=== PATIENT | female | born 1950 | race Caucasian/White ===

== ENCOUNTER 2017-01-16 12:16 | Emergency (ER) | payer MEDICARE, MEDICAID ==
[2017-01-16] MEDS ORDERED: NS 0.9% 1000 ML* 1,000 ML IV SCH (12:45)
--- NOTE | 2017-01-16 14:17 | RAD ---
Indication: Altered mental status. Fell and hit head. Comparison: September 15, 2016 Technique: Upright AP 1351 hours Report: Unchanged minimal linear atelectasis or pleural-parenchymal scarring at the LEFT lung base. The lungs and pleural spaces are otherwise clear. Negative for pneumothorax. The heart, pulmonary vasculature, and mediastinal contours are unremarkable. No rib fracture or suspicious osseous finding. IMPRESSION: No evidence for acute intrathoracic disease.
[2017-01-16] MEDS ORDERED: LORazepam TAB(*) 1 MG PO ONE (14:55)
[2017-01-16] MEDS ORDERED: LORazepam TAB(*) 1 MG ONE (14:57)
--- NOTE | 2017-01-16 15:30 | RAD ---
INDICATION: Intracranial injury COMPARISON: CT brain December 16, 2015 TECHNIQUE: Noncontrast axial source images were acquired from the skull base to the vertex. FINDINGS: Ventricles/sulci: There is cortical atrophy with compensatory dilatation of the CSF spaces. Brain parenchyma: There is periventricular and subcortical white matter change compatible with chronic ischemia. Intracranial hemorrhage:None. Extra-axial spaces: There are no abnormal extra axial fluid collections or evidence of extra-axial mass. Calvarium: There is no calvarial fracture or other calvarial abnormality. Scalp: There is no evidence of scalp or extracalvarial soft tissue abnormality. Paranasal sinuses/mastoid: The paranasal sinuses and mastoid air cells are clear. Other: None. IMPRESSION: CORTICAL ATROPHY WITH CHRONIC MICROVASCULAR ISCHEMIC CHANGES. NO ACUTE FINDINGS.
--- NOTE | 2017-01-16 15:31 | RAD ---
HISTORY: Trauma, head trauma COMPARISONS: August 16, 2016 TECHNIQUE: Multiple contiguous axial CT scans were obtained of the cervical spine without intravenous contrast, with coronal and sagittal multiplanar reformations. FINDINGS: BRAIN: The visualized brain is unremarkable CENTRAL CANAL: Evaluation of the central canal is limited on CT technique; however, there is no obvious canalicular mass or epidural hemorrhage. ALIGNMENT: There is straightening of the cervical lordosis. VERTEBRAL BODIES: There is mild anterolateral marginal osteophyte formation. There is no displaced fracture. JOINTS: There is osteoarthritis of the uncovertebral and facet joints. There is no subluxation or dislocation MUSCULATURE: Unremarkable INTERVERTEBRAL DISCS: There is diffuse loss of intervertebral disc height. AXIAL IMAGES: There is multilevel neural foraminal narrowing. There is no significant osseous central canal stenosis SOFT TISSUES: The visualized soft tissues of the neck are unremarkable. The prevertebral fat stripe is preserved. OTHER: None. IMPRESSION: DEGENERATIVE DISC DISEASE AND OSTEOARTHRITIS. NO ACUTE OSSEOUS INJURY TO THE CERVICAL SPINE
[2017-01-16 15:48] LABS: Urine Bacteria Absent (Absent); Urine Bilirubin Negative (Negative); Urine Glucose Negative (Negative); Urine Nitrite Negative (Negative)
[2017-01-16 15:59] LABS: BUN/Creatinine Ratio 26.1 (8-20); C Reactive Protein 58.45 mg/L (< 5.00); Calcium 9.3 mg/dL (8.6-10.3); EGFR African American 108.8 (>60); EGFR Non-African American 84.6 (>60); Globulin 3.3 g/dL (2-4); Magnesium 2.3 mg/dL (1.9-2.7); Potassium 3.6 mmol/L (3.5-5.0); Total Bilirubin 0.5 mg/dL (0.2-1.0); Total Protein 7.3 g/dL (6.4-8.9)
[2017-01-16 16:39] LABS: TSH (Thyroid Stimulating Horm) 2.08 mcIU/mL (0.34-5.60)
[2017-01-16 18:44] VITALS: BP 117/71
--- NOTE | 2017-01-16 18:50 | ED ---
Olga Wilson Matthew, scribed for Dung Ferrari MD on 01/16/17 at 1505 . Adult Trauma - HPI Summary HPI Summary: A 66 y/o female presents to the ED by EMS after sustaining a mechanical fall two days ago. The patient states that she does not remember how she fell. Associated symptoms include vomiting last night and ecchymosis to the left frontal mackenzie. The patient denies pain, LOC, chest pain, SOB, diarrhea, and weakness. The patient is not on a blood thinner. The patient is in assisted living and the report states that she's also been more lethargic than normal. - History of Current Complaint Chief Complaint: EDGeneral Stated Complaint: FALL Time Seen by Provider: 01/16/17 14:41 Hx Obtained From: Patient ?: No Mechanism of Injury: Fall Ambulatory at the Scene: No Loss of Consciousness: no loss of consciousness Current Severity: Mild Pain Intensity: 0 Pain Scale Used: 0-10 Numeric Location: Head Aggravating Factor(s): Nothing Alleviating Factor(s): Nothing Associated Signs & Symptoms: Positive: Nausea/Vomiting, Ecchymosis - Left frontal forehead. Negative: SOB, Chest Pain, Loss of Consciousness, Numbness/ Weakness - Additional Pertinent History Primary Care Physician: [id number] - Allergy/Home Medications Allergies/Adverse Reactions: Allergies Allergy/AdvReac Type Severity Reaction Status Date / Time No Known Allergies Allergy Verified 07/23/16 06:49 Home Medications: Home Medications Acetaminophen SUPP* [Tylenol Supp*] 650 mg AK Q6H PRN 01/16/17 [History Confirmed 01/16/17] Benztropine TAB* [Cogentin TAB*] 2 mg PO BEDTIME 01/16/17 [History Confirmed ] Cholecalciferol [Vitamin D3] 50,000 unit PO MONTHLY 01/16/17 [History Confirmed 01/16/17] Divalproex Sprinkle CAP* [Depakote Sprinkle CAP*] 500 mg PO BID 01/16/17 [ History Confirmed 01/16/17] Haloperidol TAB* [Haldol TAB*] 7.5 mg PO BID PRN 01/16/17 [History Confirmed ] Potassium Chlor TAB* [Klor Con ER TAB*] 10 meq PO TID 01/16/17 [History Confirmed 01/16/17] Sennosides-Docusate Sodium [Senna-S 8.6-50 mg] 2 tab PO BEDTIME PRN 01/16/17 [ History Confirmed 01/16/17] risperiDONE CONSTA* [RisperDAL Consta*] 50 mg IM Q14D 01/16/17 [History Confirmed 01/16/17] PMH/Surg Hx/FS Hx/Imm Hx Musculoskeletal History: Reports: Hx Arthritis - osteoarthritis, Other Musculoskeletal History - tremors Neurological History: Reports: Hx Dementia - Alzheimer's Psychiatric History: Reports: Hx Anxiety, Hx Depression, Hx Schizophrenia, Hx Bipolar Disorder, Hx of Violent Episodes Against Others Denies: Hx Eating Disorder Infectious Disease History: No Infectious Disease History: Denies: Traveled Outside the [place] in Last 30 Days - Family History Known Family History: Positive: Diabetes - Social History Alcohol Use: None Substance Use Type: Reports: None Smoking Status (MU): Never Smoked Tobacco Review of Systems Constitutional: Negative Eyes: Negative ENT: Negative Cardiovascular: Negative Negative: Chest Pain Respiratory: Negative Negative: Shortness Of Breath Positive: Vomiting - last night . Negative: Diarrhea Genitourinary: Negative Musculoskeletal: Negative Positive: Bruising - left frontal forehead Neurological: Negative Positive: Anxious All Other Systems Reviewed And Are Negative: Yes Physical Exam - Summary Physical Exam Summary: The patient is well-nourished in no acute distress and in no acute pain. The skin is warm and dry and skin color reflects adequate perfusion. HEENT: The head is normocephalic and atraumatic. The pupils are equal and reactive. The conjunctivae are clear and without drainage. Nares are patent and without drainage. Mouth reveals moist mucous membranes and the throat is without erythema and exudate. The external ears are intact. The ear canals are patent and without drainage. The tympanic membranes are intact. The patient has no hemotympanum, no wells sign, and no raccoon sign. She has a hematoma of the left frontal forehead. No injuries noted to her facial bones Neck is supple with full range of motion and non-tender. There are no carotid bruits. There is no neck vein distension. Respiratory: Chest is non-tender. Lungs are clear to auscultation and breath sounds are symmetrical and equal. Cardiovascular: Heart is regular rate and rhythm. There is no murmur or rub auscultated. There is no peripheral edema and pulses are symmetrical and equal. Abdomen: The abdomen is soft and non-tender. There are normal bowel sounds heard in all four quadrants and there is no organomegaly palpated. Musculoskeletal: There is no back pain noted. Extremities are non-tender with full range of motion. There is good capillary refill. There is no peripheral edema or calf tenderness elicited. Neurological: Patient is alert and oriented to person, place and time. The patient has symmetrical motor strength in all four extremities. Cranial nerves are grossly intact. Deep tendon reflexes are symmetrical and equal in all four extremities. Psychiatric: The patient is anxious. Triage Information Reviewed: Yes Vital Signs On Initial Exam: Initial Vitals Temp Pulse Resp BP Pulse Ox 99.0 F 92 18 111/52 94 01/16/17 12:20 01/16/17 12:20 01/16/17 12:20 01/16/17 12:20 01/16/17 12:20 Vital Signs Reviewed: Yes - Riri Coma Scale Coma Scale Total: 15 Diagnostics - Vital Signs Vital Signs Temp Pulse Resp BP Pulse Ox 01/16/17 14:34 94 20 103/65 94 01/16/17 14:30 93 22 82/41 94 01/16/17 14:15 26 01/16/17 14:00 87 17 106/36 95 01/16/17 13:45 87 15 97 01/16/17 13:30 83 16 101/52 96 01/16/17 13:15 88 17 97 01/16/17 13:00 88 15 105/45 95 01/16/17 12:45 88 14 94 01/16/17 12:42 87 13 96/50 96 01/16/17 12:40 16 96/41 01/16/17 12:37 99 F 91 18 96/50 97 01/16/17 12:29 99 F 90 18 101/56 96 01/16/17 12:28 99 F 89 18 111/52 96 01/16/17 12:20 99.0 F 92 18 111/52 94 - Laboratory Lab Results: Lab Results 01/16/17 01/16/17 01/16/17 Range/Units 15:29 15:29 15:29 INR (Anticoag Therapy) 0.95 (0.89-1.11) APTT 25.2 L (26.0-36.3) seconds Sodium 138 (133-145) mmol/L Potassium 3.6 (3.5-5.0) mmol/L Chloride 105 (101-111) mmol/L Carbon Dioxide 27 (22-32) mmol/L Anion Gap 6 (2-11) mmol/L BUN 18 (6-24) mg/dL Creatinine 0.69 (0.51-0.95) mg/dL Est GFR ( Amer) 108.8 (>60) Est GFR (Non-Af Amer) 84.6 (>60) BUN/Creatinine Ratio 26.1 H (8-20) Glucose 91 (70-100) mg/dL Lactic Acid (0.5-2.0) mmol/L Calcium 9.3 (8.6-10.3) mg/dL Magnesium 2.3 (1.9-2.7) mg/dL Total Bilirubin 0.50 (0.2-1.0) mg/dL AST 19 (13-39) U/L ALT 12 (7-52) U/L Alkaline Phosphatase 45 (34-104) U/L Total Creatine Kinase 82 (10-223) U/L CK-MB (CK-2) 4.4 (0.6-6.3) ng/mL Troponin I 0.00 (<0.04) ng/mL C-Reactive Protein 58.45 H (< 5.00) mg/L B-Natriuretic Peptide ( - 100) pg/mL Total Protein 7.3 (6.4-8.9) g/dL Albumin 4.0 (3.2-5.2) g/dL Globulin 3.3 (2-4) g/dL Albumin/Globulin Ratio 1.2 (1-3) Lipase 11 (11.0-82.0) U/L TSH 2.08 (0.34-5.60) mcIU/mL Urine Color Yellow Urine Appearance Clear Urine pH 7.0 (5-9) Ur Specific [place] 1.010 (1.010-1.030) Urine Protein Negative (Negative) Urine Ketones Trace H (Negative) Urine Blood Negative (Negative) Urine Nitrate Negative (Negative) Urine Bilirubin Negative (Negative) Urine Urobilinogen Negative (Negative) Ur Leukocyte Esterase 3+ H (Negative) Urine WBC (Auto) 3+(>20/hpf) H (Absent) Urine RBC (Auto) Absent (Absent) Ur Squamous Epith Cells Present H (Absent) Urine Bacteria Absent (Absent) Urine Glucose Negative (Negative) Valproic Acid 111.0 H (50-100) mcg/mL 01/16/17 01/16/17 Range/Units 15:29 15:29 INR (Anticoag Therapy) (0.89-1.11) APTT (26.0-36.3) seconds Sodium (133-145) mmol/L Potassium (3.5-5.0) mmol/L Chloride (101-111) mmol/L Carbon Dioxide (22-32) mmol/L Anion Gap (2-11) mmol/L BUN (6-24) mg/dL Creatinine (0.51-0.95) mg/dL Est GFR ( Amer) (>60) Est GFR (Non-Af Amer) (>60) BUN/Creatinine Ratio (8-20) Glucose (70-100) mg/dL Lactic Acid 0.6 (0.5-2.0) mmol/L Calcium (8.6-10.3) mg/dL Magnesium (1.9-2.7) mg/dL Total Bilirubin (0.2-1.0) mg/dL AST (13-39) U/L ALT (7-52) U/L Alkaline Phosphatase (34-104) U/L Total Creatine Kinase (10-223) U/L CK-MB (CK-2) (0.6-6.3) ng/mL Troponin I (<0.04) ng/mL C-Reactive Protein (< 5.00) mg/L B-Natriuretic Peptide 72 ( - 100) pg/mL Total Protein (6.4-8.9) g/dL Albumin (3.2-5.2) g/dL Globulin (2-4) g/dL Albumin/Globulin Ratio (1-3) Lipase (11.0-82.0) U/L TSH (0.34-5.60) mcIU/mL Urine Color Urine Appearance Urine pH (5-9) Ur Specific [place] (1.010-1.030) Urine Protein (Negative) Urine Ketones (Negative) Urine Blood (Negative) Urine Nitrate (Negative) Urine Bilirubin (Negative) Urine Urobilinogen (Negative) Ur Leukocyte Esterase (Negative) Urine WBC (Auto) (Absent) Urine RBC (Auto) (Absent) Ur Squamous Epith Cells (Absent) Urine Bacteria (Absent) Urine Glucose (Negative) Valproic Acid (50-100) mcg/mL Result Diagrams: 01/16/17 15:29 Lab Statement: Any lab studies that have been ordered have been reviewed, and results considered in the medical decision making process. - Radiology CXR Xray Interpretation: No Acute Changes - IMPRESSION: No evidence for acute intrathoracic disease. Radiology Interpretation Completed By: Radiologist - CT Brain CT CT Interpretation: No Acute Changes - IMPRESSION: CORTICAL ATROPHY WITH CHRONIC MICROVASCULAR ISCHEMIC CHANGES. NO ACUTE FINDINGS. CT Interpretation Completed By: Radiologist Cervical Spine CT Interpretation: No Acute Changes - IMPRESSION: DEGENERATIVE DISC DISEASE AND OSTEOARTHRITIS. NO ACUTE OSSEOUS INJURY TO THE CERVICAL SPINE CT Interpretation Completed By: Radiologist Adult Trauma Course/Dx - Course Assessment/Plan: A 66 y/o female presents to the ED by EMS after sustaining a mechanical fall two days ago. Associated symptoms include vomiting last night. The patient denies pain, LOC, chest pain, SOB, diarrhea, and weakness. CXR shows no active cardiopulmonary disease. Brain CT shows no acute findings. C- Spine CT shows no acute osseous injury. Labs were reviewed. In the ED course, the patient was given Ativan and IV fluids. The patient will be discharged home and follow-up with her PCP. - Diagnoses Provider Diagnoses: Head contusion, Altered mental status, Anxiety Discharge - Discharge Plan Condition: Stable Disposition: HOME Patient Education Materials: Facial Contusion (ED), Altered Mental Status (ED) , Anxiety (ED) Referrals: Andrés Sol MD [Primary Care Provider] - 2 Days Additional Instructions: Please follow-up with your primary care physician in 2 days. The documentation as recorded by the Olga goode Matthew accurately reflects the service I personally performed and the decisions made by , Dung Ferrari MD.
== END 2017-01-16 18:41 | disposition home or self-care (01) ==
LOC: ED 12:16
DX: R11.2 Nausea with vomiting, unspecified (principal); R58 Hemorrhage, not elsewhere classified; S00.83XA Contusion of other part of head, initial encounter; W19.XXXA Unspecified fall, initial encounter; Y93.9 Activity, unspecified; Y92.9 Unspecified place or not applicable
CPT/HCPCS: 36415; 70450; 71010; 72125; 80053; 80164; 81003; 81015; 82550; 82553; 83605; 83690; 83735; 83880; 84443; 84484; 85610; 85730; 86140; 87086; 99284; A9270-GY

== ENCOUNTER 2017-08-12 12:05 | Emergency (ER) | payer MEDICARE, OTHER ==
[2017-08-12 12:52] LABS: Hematocrit 38 % (35-47); Hemoglobin 12.8 g/dl (12.0-16.0); Mean Corpuscular HGB Conc 33 g/dl (31-36); Mean Corpuscular Hemoglobin 30 pg (27-31); Mean Corpuscular Volume 90 fL (80-97); Mean Platelet Volume 7 um3 (7.4-10.4); Red Blood Count 4.24 10^6/ul (4.0-5.4); Red Cell Distribution Width 15 % (10.5-15); White Blood Count 6.4 10^3/ul (3.5-10.8)
[2017-08-12 13:09] LABS: Albumin 3.9 g/dL (3.2-5.2); Calcium 9.2 mg/dL (8.6-10.3); EGFR African American 108.8 (>60); EGFR Non-African American 84.6 (>60); Globulin 3.7 g/dL (2-4); Potassium 3.9 mmol/L (3.5-5.0); Total Bilirubin 0.4 mg/dL (0.2-1.0); Total Protein 7.6 g/dL (6.4-8.9)
[2017-08-12 17:26] LABS: Urine Bacteria 1+ (Absent)
[2017-08-12 17:28] LABS: Urine Bilirubin Negative (Negative); Urine Glucose Negative (Negative); Urine Nitrite Positive (Negative)
[2017-08-12] MEDS ORDERED: NS 0.9% 1000 ML* 1,000 ML IV ONE (18:49)
[2017-08-12] MEDS ORDERED: cefTRIAXone(*) 1 GM in NS 0.9% 50 ML* 50 ML IVPB ONE (18:49)
[2017-08-12 19:45] LABS: C Reactive Protein 7.37 mg/L (< 5.00)
[2017-08-12 23:03] VITALS: BP 115/80
--- NOTE | 2017-08-13 15:23 | ED ---
Fara Wilson Alfonso scribed for Yuriy Soliz MD on 08/12/17 at 1342 . Altered Mental Status - HPI Summary HPI Summary: This patient is a 66 year old F BIBA presenting to [facility] with a chief complaint of AMS since a few days ago. The patient rates the pain 0/10 in severity. Symptoms alleviated by nothing. Patient reports she wants to return to [facility] because she doesnt care anymore. She reports loss of appetite. Per [facility], patient has had a change in baseline strength, increased sleeping , decreased motivation though she was previously ambulatory; all of which the patient denies. Patient also denies SI. - History Of Current Complaint Chief Complaint: EDAltMentalStatus Stated Complaint: WEAKNESS Hx Obtained From: Patient, Medical Records - [facility] Hx From Patient Unobtainable Due To: Altered Mental Status Onset/Duration: Still Present Timing: Constant, Lasting Days Severity Initially: Moderate Severity Currently: Moderate Alleviating Factor(s): Nothing Associated Signs And Symptoms: Positive: Weakness, Recently Depressed - Allergies/Home Medications Allergies/Adverse Reactions: Allergies Allergy/AdvReac Type Severity Reaction Status Date / Time No Known Allergies Allergy Verified 07/23/16 06:49 PMH/Surg Hx/FS Hx/Imm Hx Musculoskeletal History: Reports: Hx Arthritis - osteoarthritis, Other Musculoskeletal History - tremors Neurological History: Reports: Hx Dementia - Alzheimer's Psychiatric History: Reports: Hx Anxiety, Hx Depression, Hx Schizophrenia, Hx Bipolar Disorder, Hx of Violent Episodes Against Others Denies: Hx Eating Disorder Infectious Disease History: Unable to Obtain/Confirm Infectious Disease History: Denies: Traveled Outside the [place] in Last 30 Days - Family History Known Family History: Positive: Unknown - unattainable due to dementia, level 5 caveat, Diabetes - Social History Alcohol Use: None Substance Use Type: Reports: None Smoking Status (MU): Never Smoked Tobacco Review of Systems Negative: Fever, Chills Negative: Erythema Negative: Sore Throat Negative: Chest Pain Negative: Shortness Of Breath, Cough Gastrointestinal: Other - loss of appetite Negative: Abdominal Pain, Vomiting, Nausea Negative: dysuria, hematuria Positive: Myalgia. Negative: Edema Negative: Rash Neurological: Other - positive: change in baseline strength, increased sleeping , decreased motivation though she was previously ambulatory; Negative: Dizziness Positive: Other - altered mental status; negative SI All Other Systems Reviewed And Are Negative: Yes Physical Exam Triage Information Reviewed: Yes Vital Signs On Initial Exam: Initial Vitals Temp Pulse Resp BP Pulse Ox 97.8 F 76 18 126/50 96 08/12/17 12:07 08/12/17 12:07 08/12/17 12:07 08/12/17 12:07 08/12/17 12:07 Vital Signs Reviewed: Yes Appearance: Positive: Well-Appearing, No Pain Distress, Well-Nourished Skin: Positive: Warm, Dry, Other - withdraws from touch from stethoscope; dry mucous membranes Head/Face: Positive: Normal Head/Face Inspection Eyes: Positive: Conjunctiva Clear Neck: Positive: Other: - Musculoskeletal ROM normal neck. (-) JVD, (-) Stridor, (-) Tracheal deviation, (-) Cervical adenopathy Respiratory/Lung Sounds: Positive: Other - Effort normal. (-) Respiratory distress, (-) Wheezes, (-) Rales Cardiovascular: Positive: RRR, Other - Heart sounds normal; Intact distal pulses ; The pedal pulses are 2+ and symmetric. Radial pulses are 2+ and symmetric. (- ) Murmur Abdomen Description: Positive: Nontender, Soft, Other: - Negative rebound. Negative: Distended, Guarding Musculoskeletal: Positive: Other - Withdrawals from light touch.. Negative: Edema Left, Edema Right Neurological: Positive: Alert, Oriented to Person Place, Time Psychiatric: Positive: Other - tearful - Riri Coma Scale Coma Scale Total: 15 Diagnostics - Vital Signs Vital Signs Temp Pulse Resp BP Pulse Ox 08/12/17 12:07 97.8 F 76 18 126/50 96 - Laboratory Lab Results: Lab Results 08/12/17 Range/Units 12:40 WBC 6.4 (3.5-10.8) 10^3/ul RBC 4.24 (4.0-5.4) 10^6/ul Hgb 12.8 (12.0-16.0) g/dl Hct 38 (35-47) % MCV 90 (80-97) fL MCH 30 (27-31) pg MCHC 33 (31-36) g/dl RDW 15 (10.5-15) % Plt Count 257 (150-450) 10^3/ul MPV 7 L (7.4-10.4) um3 Neut % (Auto) 52.1 (38-83) % Lymph % (Auto) 32.5 (25-47) % [place] % (Auto) 12.0 H (1-9) % Eos % (Auto) 2.7 (0-6) % Baso % (Auto) 0.7 (0-2) % Absolute Neuts (auto) 3.3 (1.5-7.7) 10^3/ul Absolute Lymphs (auto) 2.1 (1.0-4.8) 10^3/ul Absolute Monos (auto) 0.8 (0-0.8) 10^3/ul Absolute Eos (auto) 0.2 (0-0.6) 10^3/ul Absolute Basos (auto) 0 (0-0.2) 10^3/ul Absolute Nucleated RBC 0 10^3/ul Nucleated RBC % 0 Result Diagrams: 08/12/17 12:40 08/12/17 12:40 Lab Statement: Any lab studies that have been ordered have been reviewed, and results considered in the medical decision making process. - EKG 1242 Cardiac Rate: NL - BPM 77 EKG Rhythm: Sinus Rhythm EKG Interpretation: No STEMI Altered Mental Statu Course/Dx - Course Assessment/Plan: This patient is a 66 year old F BIBA presenting to [facility] with a chief complaint of AMS since a few days ago. The patient rates the pain 0/10 in severity. Symptoms alleviated by nothing. Patient reports she wants to return to [facility] because she doesnt care anymore. She reports loss of appetite. Per [facility], patient has had a change in baseline strength, increased sleeping, decreased motivation though she was previously ambulatory; all of which the patient denies. Patient also denies SI. An EKG reveals NSR. Patient is signed out at shift change, pending disposition, awaiting MHE. - Diagnoses Discharge Diagnoses: Schizophrenia, UTI (urinary tract infection) Discharge - Discharge Plan Condition: Stable Disposition: OTHER Discharge Disposition Comment: Patient is signed out at shift change, pending disposition, awaiting MHE. Patient Education Materials: Schizophrenia (ED), Urinary Tract Infection in Women (ED) Referrals: Andrés Sol MD [Primary Care Provider] - The documentation as recorded by the Fara goode Alfonso accurately reflects the service I personally performed and the decisions made by me, Yuriy Soliz MD.
--- NOTE | 2017-08-14 19:47 | PN ---
Progress Note - Progress Note Date of Service: 08/14/17 Note: Patient urine grew Citrobacter >100,000. patient placed on cipro which final culture shows is sensitive to. no further action needed.
== END 2017-08-13 02:13 ==
LOC: ED 12:05
DX: N39.0 Urinary tract infection, site not specified (principal); F20.9 Schizophrenia, unspecified; B96.89 Other specified bacterial agents as the cause of diseases classified elsewhere
CPT/HCPCS: 36415; 80053; 81003; 81015; 83605; 84484; 85025; 86140; 87077; 87086; 87186; 93005; 96360; 96374; 99285; J0696

== ENCOUNTER 2018-12-24 09:42 | Emergency (ER) | payer MEDICARE, MEDICAID ==
[2018-12-24] MEDS ORDERED: LORazepam TAB(*) 1 MG PO ONE (10:06)
[2018-12-24] MEDS ORDERED: LORazepam INJ* 2 MG/ML 1 ML VIAL IM ONE (10:12)
[2018-12-24] MEDS ORDERED: Lidocaine 1%* 5 ML VIAL INJ ONE (10:18)
--- NOTE | 2018-12-24 11:01 | ED ---
Skin Complaint - HPI Summary HPI Summary: Patient is a 68-year-old female who presents emergency department for abscess to her chest. Patient resides at [facility] and has an extensive psychiatric history. [facility] that patient has had a wound to the center of her chest for about 4 weeks. She was on a course of doxycycline which was recently switched to Bactrim. Patient had an ultrasound of area done yesterday which showed a small fluid collection. No associate symptoms of fevers, vomiting, change in mental status. Symptoms are mild in severity. Touching affected area makes symptoms worse. Rest makes symptoms better. [facility] obtained [facility]. - History of Current Complaint Chief Complaint: EDRashSkinAbscess Time Seen by Provider: 12/24/18 09:54 Stated Complaint: ABSCESS ON CHEST Hx Obtained From: Family/Director Special Education Pain Intensity: 6 - Additional Pertinent History Primary Care Physician: MARILYN - Allergy/Home Medications Allergies/Adverse Reactions: Allergies Allergy/AdvReac Type Severity Reaction Status Date / Time No Known Allergies Allergy Verified 12/24/18 09:53 Home Medications: Home Medications Cholecalciferol (Vitamin D3) [Vitamin D3] 50,000 unit PO MONTHLY 12/24/18 [ History Confirmed 12/24/18] Sulfamethox/Trimethoprim DS* [Bactrim DS 800/160 TAB*] 1 tab PO BID 12/24/18 [ History Confirmed 12/24/18] guaiFENesin LIQ* [Robitussin*] 5 ml PO Q4H PRN 12/24/18 [History Confirmed 12/24] PMH/Surg Hx/FS Hx/Imm Hx Previously Healthy: Yes Musculoskeletal History: Reports: Hx Arthritis - osteoarthritis, Other Musculoskeletal History - tremors Neurological History: Reports: Hx Dementia - Alzheimer's Psychiatric History: Reports: Hx Anxiety, Hx Depression, Hx Schizophrenia, Hx Bipolar Disorder, Hx of Violent Episodes Against Others Denies: Hx Eating Disorder Infectious Disease History: Unable to Obtain/Confirm Infectious Disease History: Denies: Traveled Outside the [place] in Last 30 Days - Family History Known Family History: Positive: Unknown - unattainable due to dementia, level 5 caveat, Diabetes, Non-Contributory - Social History Occupation: Retired Lives: At [facility] Alcohol Use: None Substance Use Type: Reports: None Smoking Status (MU): Never Smoked Tobacco Review of Systems Constitutional: Negative Negative: Fever, Chills Gastrointestinal: Negative Positive: Other - Abscess to anterior chest All Other Systems Reviewed And Are Negative: Yes Physical Exam Triage Information Reviewed: Yes Vital Signs On Initial Exam: Initial Vitals Pulse Pulse Ox 85 93 12/24/18 09:48 12/24/18 09:48 Vital Signs Reviewed: Yes Appearance: Positive: Well-Nourished - Pt. lying in bed, extremely anxious. No very cooperative with exam. Skin: Positive: Warm, Dry, Other - Noted the center of the upper chest there is a roughly 2cm in diameter wound with scabbing. Mild fluctuance in the subcutaneous region. Wound edges are erythematous but no surrouding cellulitis. Head/Face: Positive: Normal Head/Face Inspection Eyes: Positive: Normal, EOMI Neck: Positive: Supple Musculoskeletal: Positive: Normal, Strength/ROM Intact Neurological: Positive: Normal, CN Intact II-III Psychiatric: Positive: Anxious Procedures - Incision and Drainage Anterior Chest Anesthesia: Local, Lidocaine Instrument(s): Scalpel Packing: Gauze Diagnostics - Vital Signs Vital Signs Temp Pulse Resp BP Pulse Ox 12/24/18 10:28 20 12/24/18 10:08 84 94 12/24/18 09:53 98.8 F 92 24 113/63 92 12/24/18 09:48 85 93 - Laboratory Lab Statement: Any lab studies that have been ordered have been reviewed, and results considered in the medical decision making process. Course/Dx - Course Assessment/Plan: Pt. presenting for small superficial abscess to chest wall. She is afebrile and at her baseline. There is no surrounding cellulits on exam. Pt. examined by Dr. Mccarthy as well. Plan for IM ativan to help with pt.'s anxiety and perform I and D. During initial assessment nurse was able to express a moderate amount of purulent matter from wound. Culture obtained. I and D did not yeild much drainage but packing placed. Will continue bactrim. Apply warm compresses. Wound check with PCP in 2-3 days. Packing removal in 48 hours. To return to ER for fever, increased pain, redness, swelling, or if concerned. - Differential Diagnoses - Skin Complaint Differential Diagnoses: Abscess, Cellulitis - Diagnoses Provider Diagnoses: Abscess Discharge - Sign-Out/Discharge Documenting (check all that apply): Patient Departure Patient Received Moderate/Deep Sedation with Procedure: No - Discharge Plan Condition: Improved Disposition: HOME Patient Education Materials: Abscess (ED) Referrals: Andrés Sol MD [Primary Care Provider] - Additional Instructions: Wound check with PCP in 2-3 days Packing removal/change in 48 hours Keep wound clean and dry Apply warm compresses Continue Bactrim as directed Return to ER for increased pain, redness, swelling, fever, or if concerned - Billing Disposition and Condition Condition: IMPROVED Disposition: Home
[2018-12-24 13:30] VITALS: BP 107/54
--- NOTE | 2018-12-24 17:23 | CONSULT ---
Consult Consult: Patient seen with Piter Montalvo. This patient is a 68 year old female who was sent here by her living facility for treatment of an unhealing lesion on her chest wall. An U/S was done today showing drainable fluid in the lesion. On exam, the patient is in no acute distress. She has a 2cm lesion on the anterior chest wall just over the superior sternum. It is fluctuant and has overlying crusting and purulent drainage. Assessment: anterior chest wall abscess. Plan: I agree with I+D performed by Piter Montalvo and discharge back to facility. It is recommended that she continue the Bactrim she is currently taking.
== END 2018-12-24 12:26 | disposition home or self-care (01) ==
LOC: ED 09:42
DX: L02.213 Cutaneous abscess of chest wall (principal)
CPT/HCPCS: 10060; 87070; 87205; 87640; 87641; 96372; 99284; J2060

== ENCOUNTER 2019-08-01 17:59 | Emergency (ER) | payer MEDICARE, MEDICAID ==
--- NOTE | 2019-08-01 19:23 | ED ---
Adult Trauma - HPI Summary HPI Summary: Patient is a 68 y/o F presenting to ED via EMS from [facility] for an unwitnessed fall. Staff called EMS. Patient denies pain or injury from fall, but states that she feels upset about the fall. No further information is able to be obtained from the patient, patient is a level 5 caveat due to dementia. PMHx of dementia, arthritis, anxiety, depression, bipolar disorder, schizophrenia. Home medications and allergies are reviewed. - History of Current Complaint Chief Complaint: EDFall Stated Complaint: FALL, EVALUATION PER EMS Time Seen by Provider: 08/01/19 19:13 Hx Obtained From: Patient, EMS, Medical Records Hx From Patient Unobtainable Due To: Dementia - limited history, patient is a level 5 caveat due to dementia Mechanism of Injury: Fall Loss of Consciousness: unsure - unwitnessed fall Restraints: None Current Severity: None Pain Intensity: 0 Pain Scale Used: 0-10 Numeric - Additional Pertinent History Primary Care Physician: MARILYN - Allergy/Home Medications Allergies/Adverse Reactions: Allergies Allergy/AdvReac Type Severity Reaction Status Date / Time No Known Allergies Allergy Verified 12/24/18 09:53 PMH/Surg Hx/FS Hx/Imm Hx Musculoskeletal History: Reports: Hx Arthritis - osteoarthritis, Other Musculoskeletal History - tremors Neurological History: Reports: Hx Dementia - Alzheimer's Psychiatric History: Reports: Hx Anxiety, Hx Depression, Hx Schizophrenia, Hx Bipolar Disorder, Hx of Violent Episodes Against Others Denies: Hx Eating Disorder Infectious Disease History: Unable to Obtain/Confirm Infectious Disease History: Denies: Traveled Outside the [place] in Last 30 Days - Family History Known Family History: Positive: Diabetes - Social History Alcohol Use: None Substance Use Type: Reports: None Smoking Status (MU): Never Smoked Tobacco Review of Systems - ROS Summary Review of Systems Summary: limited history, patient is a level 5 caveat due to dementia Negative: Fever - on vitals, temp is 98.7 F Musculoskeletal: Other - positive - fall; negative - pain or injury All Other Systems Reviewed And Are Negative: No - Comments Additional Review of Systems Comments: limited history, patient is a level 5 caveat due to dementia Physical Exam - Summary Physical Exam Summary: Appearance: Well-appearing, Well-nourished, Elderly, Tremulous and Tearful Skin: Warm, dry, no obvious rash Eyes: sclera anicteric, no conjunctival pallor ENT: mucous membranes moist, pharynx appears normal Neck: Supple, nontender, FROM of neck Respiratory: Clear to auscultation, no signs of respiratory distress Cardiovascular: Normal S1, S2. No murmurs. Normal distal pulses in tibial and radial bilaterally. Abdomen: Soft, nontender, normal active bowel sounds present Musculoskeletal: Normal, Strength/ROM Intact; no tenderness to palpation over extremities. No signs of head trauma. Neurological: Level 5 caveat due to dementia. Triage Information Reviewed: Yes Vital Signs On Initial Exam: Initial Vitals Temp Pulse Resp BP Pulse Ox 98.7 F 93 20 100/60 96 08/01/19 18:18 08/01/19 18:18 08/01/19 18:18 08/01/19 18:18 08/01/19 18:18 Vital Signs Reviewed: Yes Completion Of Physical Exam Limited Due To: Dementia, Level 5 Diagnostics - Vital Signs Vital Signs Temp Pulse Resp BP Pulse Ox 08/01/19 18:18 98.7 F 93 20 100/60 96 - Laboratory Lab Statement: Any lab studies that have been ordered have been reviewed, and results considered in the medical decision making process. Adult Trauma Course/Dx - Course Course Of Treatment: Patient is a 68 y/o F presenting to ED via EMS from [facility] for an unwitnessed fall. Staff called EMS. Patient denies pain or injury from fall, but states that she feels upset about the fall. Patient is tremulous and tearful, but no tenderness over extremities is noted, patient has FROM of neck and no tenderness of her neck. No signs of head trauma noted. Patient is a level 5 caveat due to dementia. Patient was discharged from ED back to [facility]. - Diagnoses Provider Diagnoses: Fall Discharge ED - Sign-Out/Discharge Documenting (check all that apply): Patient Departure - discharge Patient Received Moderate/Deep Sedation with Procedure: No - Discharge Plan Condition: Stable Disposition: HOME Patient Education Materials: Fall Prevention for Older Adults (ED) Referrals: Melisa Wetzel DO [Primary Care Provider] - Additional Instructions: Mrs. Dominguez does not seem to have suffered any significant injury consequent to her fall, so we did not pursue any diagnostics. If she begins to complain of anything specific we can always see her back here. - Billing Disposition and Condition Condition: STABLE Disposition: Home - Attestation Statements Document Initiated by Raza: Yes Documenting Scribe: THALIA DIAS Provider For Whom Raza is Documenting (Include Credential): SEUN STEVENS MD Scribe Attestation: I, THALIA DIAS, scribed for SEUN STEVENS MD on 08/02/19 at 0621. Scribe Documentation Reviewed: Yes Provider Attestation: The documentation as recorded by the THALIA goode accurately reflects the service I personally performed and the decisions made by me, SEUN STEVENS MD Status of Scribe Document: Viewed
[2019-08-01 19:43] VITALS: BP 119/69
== END 2019-08-01 19:41 | disposition home or self-care (01) ==
LOC: ED 17:59
DX: G30.9 Alzheimer's disease, unspecified (principal); F02.80 Dementia in other diseases classified elsewhere, unspecified severity, without behavioral disturbance, psychotic disturbance, mood disturbance, and anxiety; R25.1 Tremor, unspecified; Z91.81 History of falling
CPT/HCPCS: 99283

== ENCOUNTER 2019-10-01 17:38 | Emergency (ER) | payer MEDICARE, OTHER ==
--- NOTE | 2019-10-01 18:09 | ED ---
Syncope/Near Syncope - HPI Summary HPI Summary: This patient is a 69 year old female presenting to [facility] with a chief complaint of syncope. The long term states she was eating dinner when she fainted. The patient states she just wants to go home. She denies chest pain and abdominal pain. - History Of Current Complaint Chief Complaint: EDSyncope Time Seen by Provider: 10/01/19 18:03 Hx Obtained From: Patient, Other: - senior living Onset/Duration: Sudden Onset Context: Witnessed, Loss Of Consciousness - Allergies/Home Medications Allergies/Adverse Reactions: Allergies Allergy/AdvReac Type Severity Reaction Status Date / Time No Known Allergies Allergy Verified 12/24/18 09:53 PMH/Surg Hx/FS Hx/Imm Hx Musculoskeletal History: Reports: Hx Arthritis - osteoarthritis, Other Musculoskeletal History - tremors Neurological History: Reports: Hx Dementia - Alzheimer's Psychiatric History: Reports: Hx Anxiety, Hx Depression, Hx Schizophrenia, Hx Bipolar Disorder, Hx of Violent Episodes Against Others Denies: Hx Eating Disorder Infectious Disease History: No Infectious Disease History: Denies: Traveled Outside the [place] in Last 30 Days - Family History Known Family History: Positive: Unknown - unattainable due to dementia, level 5 caveat, Diabetes, Non-Contributory - Social History Alcohol Use: None Substance Use Type: Reports: None Smoking Status (MU): Never Smoked Tobacco Review of Systems Negative: Chest Pain Negative: Abdominal Pain Positive: Syncope All Other Systems Reviewed And Are Negative: Yes Physical Exam - Summary Physical Exam Summary: Constitutional: Well-developed, Well-nourished, Alert. (-) Distressed Skin: Warm, Dry HENT: Normocephalic; Atraumatic Eyes: Conjunctiva normal Neck: Musculoskeletal ROM normal neck. (-) JVD, (-) Stridor, (-) Tracheal deviation Cardio: Rhythm regular, rate normal, Heart sounds normal; Intact distal pulses; Radial pulses are 2+ and symmetric. (-) Murmur Pulmonary/Chest wall: Effort normal. (-) Respiratory distress, (-) Wheezes, (-) Rales Abd: Soft, (-) tenderness, (-) Distension, (-) Guarding, (-) Rebound Musculoskeletal: (-) Edema Lymph: (-) Cervical adenopathy Neuro: Alert, Oriented x3. Slurred speech, able to understand. Psych: Mood and affect Normal Triage Information Reviewed: Yes Vital Signs On Initial Exam: Initial Vitals Temp Pulse Resp BP Pulse Ox 98.2 F 97 16 124/57 97 10/01/19 17:47 10/01/19 17:47 10/01/19 17:47 10/01/19 17:47 10/01/19 17:47 Vital Signs Reviewed: Yes Procedures - Sedation Patient Received Moderate/Deep Sedation with Procedure: No Diagnostics - Vital Signs Vital Signs Temp Pulse Resp BP Pulse Ox 10/01/19 17:47 98.2 F 97 16 124/57 97 - Laboratory Result Diagrams: 10/01/19 18:13 10/01/19 18:13 Lab Statement: Any lab studies that have been ordered have been reviewed, and results considered in the medical decision making process. - EKG 1813 Cardiac Rate: NL - 94 BPM EKG Rhythm: Sinus Rhythm Summary of EKG Findings: ST-depression V4-v6 unchanged from prior EKG. ED Physician has reviewed and interpreted this EKG. 1853 Cardiac Rate: Tachycardia - 101 BPM EKG Rhythm: Sinus Tachycardia Summary of EKG Findings: No STEMI. ED Physician has reviewed and interpreted this report. d Summary of EKG Findings: No STEMI. ED Physician has reviewed and interpreted this report. Course/Dx Course Of Treatment: Patient is here with a suspected syncopal Gaffney eating dinner. Patient was then taken to her room where she became angry. Upon arrival here, patient has no complaints outside of periodic dysuria. Patient is also demented and at her baseline per EMS. Patient had bloodwork performed which is grossly unremarkable. Patient had a negative EKG for any acute changes. Patient sent up to Dr. Rhodes pending UA result. - Diagnoses Provider Diagnoses: Near syncope Discharge ED - Sign-Out/Discharge Documenting (check all that apply): Sign-Out Patient Signing out patient TO: Betty Rhodes - At shift change 1900 - Discharge Plan Condition: Stable Disposition: HOME Referrals: Melisa Wetzel DO [Primary Care Provider] - Additional Instructions: Follow up with your primary care provider in 2-3 days. Return to the Emergency Department if you experience new or worsening symptoms. - Billing Disposition and Condition Condition: STABLE Disposition: Home - Attestation Statements Document Initiated by Scribe: Yes Documenting Scribe: Jerel Sherman Provider For Whom Scribe is Documenting (Include Credential): Aaron Oliveros MD Scribe Attestation: I, Jerel Sherman, scribed for Aaron Oliveros MD on 10/02/19 at 1128. Scribe Documentation Reviewed: Yes Provider Attestation: The documentation as recorded by the scribe, Jerel Sherman accurately reflects the service I personally performed and the decisions made by me, Aaron Oliveros MD Status of Scribe Document: Viewed
[2019-10-01 18:33] LABS: ABS Eosinophils 0.1 10^3/ul (0-0.6); ABS Lymphocytes 1.7 10^3/ul (1.0-4.8); ABS Neutrophils 5.4 10^3/ul (1.5-7.7); Eosinophil % 1.4 %; Hematocrit 37 % (35-47); Hemoglobin 12.4 g/dL (12.0-16.0); Lymphocyte % 20.1 %; Mean Corpuscular HGB Conc 34 g/dL (31-36); Mean Corpuscular Hemoglobin 30 pg (27-31); Mean Corpuscular Volume 90 fL (80-97); Mean Platelet Volume 7.8 fL (7.4-10.4); Platelet Count 242 10^3/uL (150-450); Red Blood Count 4.07 10^6 /uL (3.70-4.87); Red Cell Distribution Width 14 % (10-15); White Blood Count 8.2 10^3/uL (3.5-10.8)
[2019-10-01 18:56] LABS: Albumin/Globulin Ratio 1.2 (1-3); BUN/Creatinine Ratio 33.8 (8-20); Calcium 9.4 mg/dL (8.6-10.3); EGFR African American 93.6 (>60); EGFR Non-African American 77.4 (>60); Globulin 3.3 g/dL (2-4); Potassium 3.7 mmol/L (3.5-5.0); Total Bilirubin 0.2 mg/dL (0.2-1.0); Total Protein 7.3 g/dL (6.4-8.9)
[2019-10-01 19:02] LABS: Urine Appearance Clear; Urine Bilirubin Negative (Negative); Urine Blood Negative (Negative); Urine Color Yellow; Urine Glucose Negative (Negative); Urine Ketones Negative (Negative); Urine Nitrite Negative (Negative); Urine Protein Negative (Negative); Urine Specific Gravity 1.016 (1.010-1.030); Urine Urobilinogen Negative (Negative)
--- NOTE | 2019-10-01 19:12 | ED ---
Progress - Progress Note Progress Note: Receiving signout from Dr. Oliveros to Dr. Rhodes at change of shift at 1900 on 10/01/19, pending workup. CXR showed no infiltrate. No pleural effusion. Patient was discharged home with a diagnosis of near syncope. - EKG/XRAY/CT XRAY: chest - No infiltrate. No pleural effusion. Dr. Rhodes interpreted and reviewed this report. Course/Dx - Diagnoses Provider Diagnoses: Near syncope Discharge ED - Sign-Out/Discharge Documenting (check all that apply): Receiving Sign-Out Receiving patient FROM: Aaron Oliveros - Receiving signout from Dr. Oliveros to Dr. Rhodes at change of shift at 1900 on 10/01/19. - Discharge Plan Condition: Stable Disposition: HOME Referrals: Melisa Wetzel DO [Primary Care Provider] - Additional Instructions: Follow up with your primary care provider in 2-3 days. Return to the Emergency Department if you experience new or worsening symptoms. - Billing Disposition and Condition Condition: STABLE Disposition: Home - Attestation Statements Document Initiated by Scribe: Yes Documenting Scribe: Jose Mclaughlin Provider For Whom Raza is Documenting (Include Credential): Betty Rhodes MD. Scribe Attestation: Jose Wilson scribed for Betty Rhodes MD. on 10/01/19 at 2145. Scribe Documentation Reviewed: Yes Provider Attestation: The documentation as recorded by the scribeJose accurately reflects the service I personally performed and the decisions made by , Betty Rhodes MD. Status of Scribe Document: Viewed
[2019-10-01 21:01] VITALS: BP 124/65
== END 2019-10-01 21:01 | disposition home or self-care (01) ==
LOC: ED 17:38
DX: R55 Syncope and collapse (principal); G30.9 Alzheimer's disease, unspecified; F02.80 Dementia in other diseases classified elsewhere, unspecified severity, without behavioral disturbance, psychotic disturbance, mood disturbance, and anxiety; F41.9 Anxiety disorder, unspecified; F20.9 Schizophrenia, unspecified; F31.9 Bipolar disorder, unspecified
CPT/HCPCS: 36415; 71045; 80053; 81003; 83605; 83880; 84484; 85025; 87040; 93005; 99283